=== PATIENT | male | born 1965 | race Caucasian/White ===

== ENCOUNTER 2018-11-23 10:19 | Observation (INO) | payer SELFPAY ==
[2018-11-23 11:12] LABS: #Lymphocytes 0.8 thou/uL (1.20-3.40); #Monocytes 0.7 thou/uL (0.11-0.59); #Neutrophils 6.2 thou/uL (1.40-6.50); %Basophils 0.3 % (0.0-1.0); %Eosinophils 0.3 % (0.0-10.0); %Lymphocytes 10.1 % (21.0-51.0); %Monocytes 8.7 % (0.0-10.0); %Neutrophils 80.5 % (42.0-75.0); Hemoglobin 12.8 g/dL (14.0-18.0); Mean Corpuscular HGB CONC 33.6 g/dL (32.0-36.0); Mean Corpuscular Hemoglobin 29.8 pg (27.0-31.0); Mean Corpuscular Volume 88.8 fL (78.0-98.0); Platelet Count 219 thou/uL (130-400); RBC Distribution Width 11.7 % (11.5-14.5); Red Blood Cell (RBC) Count 4.28 mill/uL (4.70-6.10); White Blood Cell (WBC) Count 7.7 thou/uL (4.8-10.8)
[2018-11-23 11:27] LABS: Acetaminophen Less than 6.0 mcg/mL (10.0-30.0); Alcohol Less than 10 mg/dL (Less than 10); Salicylate Less than 8.0 mg/dL (15.0-30.0)
[2018-11-23 11:28] LABS: ALT (SGPT) 11 U/L (8-55); AST (SGOT) 12 U/L (5-34); Albumin 3.6 g/dL (3.5-5.0); Alcohol Less than 10 mg/dL (Less than 10); Alkaline Phosphatase 82 U/L (40-150); Anion Gap 10 mmol/L (10-20); BUN (Urea Nitrogen) 12 mg/dL (8.4-25.7); CK (CPK) 61 U/L (30-200); Calc. Creatinine Clearance 0 mL/min (70-130); Calcium 8.4 mg/dL (7.8-10.44); Carbon Dioxide 22 mmol/L (22-29); Chloride 108 mmol/L (98-107); Estimated GFR-MDRD Greater than 90; Globulin 2.6 g/dL (2.4-3.5); Glucose 118 mg/dL (70-105); Potassium 3.6 mmol/L (3.5-5.1); Protein, Total 6.2 g/dL (6.0-8.3); Sodium 136 mmol/L (136-145)
[2018-11-23] MEDS ORDERED: Calcium Carbonate 500 MG ChewTAB PO PRN (11:53)
[2018-11-23] MEDS ORDERED: hydrALAZINE 20 MG/ML VIAL SLOW IVP PRN (11:53)
[2018-11-23] MEDS ORDERED: Nitroglycerin 0.4 MG TAB (25 Tab Bottle) SL PRN (11:53)
[2018-11-23] MEDS ORDERED: cloNIDine 0.1 MG TAB PO PRN (11:53)
[2018-11-23] MEDS ORDERED: Ondansetron PF 4 MG/2 ML Vial IVP PRN (11:53)
[2018-11-23] MEDS ORDERED: Sodium Chloride 0.65% Nasal 44 ML BOT EA NARE PRN (11:53)
[2018-11-23] MEDS ORDERED: Bisacodyl 5 MG TAB PO PRN ×2 (11:53)
[2018-11-23] MEDS ORDERED: Acetaminophen 325 MG TAB PO PRN (11:53)
[2018-11-23] MEDS ORDERED: Senokot S 8.6-50 MG TAB PO PRN ×2 (11:53)
[2018-11-23] MEDS ORDERED: HumaLOG 300 UNITS/3 ML VIAL SC PRN ×2 (12:43)
[2018-11-23] MEDS ORDERED: Dextrose 5% in Water 1,000 ML IV PRN (12:43)
[2018-11-23] MEDS ORDERED: Dextrose 50% Abboject 50 ML SYRINGE SLOW IVP PRN (12:43)
--- NOTE | 2018-11-23 12:59 | RAD ---
EXAM: XR Chest 1 View Portable PROVIDED CLINICAL HISTORY: Drug overdose COMPARISON: None FINDINGS: Heart size appears normal. Airspace disease at the left lung base be excluded. Right lung appears chris ar. No evidence for pleural fluid or pneumothorax. IMPRESSION: Question patchy left basilar airspace disease.
--- NOTE | 2018-11-23 13:57 | HP ---
PRIMARY CARE PHYSICIAN: None. CHIEF COMPLAINT: Somnolence and drug overdose. HISTORY OF PRESENTING ILLNESS: Mr. Cloud is a 53-year-old male without any significant past medical history, who presented to the emergency room with above-mentioned complaint. This unclear who brought him here, but he came to the ER via EMS. History is mainly obtained by the record review and discussion with ER physician, Dr. Michel. The patient is very somnolent and unable to provide any history. According to Dr. Michel, the patient has taken accidental overdose of his Thorazine. When I tried to wake up the patient, he did report that he is on a prescription of Thorazine from "[facility]" for difficulty with sleeping. He is normally supposed to take 1 tablet a day, but he forgot to take his medications for the last few days, so he decided to " ." He took 8 tablets of 100 mg Thorazine and then he also took 8 tablets of 25 mg of Benadryl. He took all of these sometime earlier this morning. Denies any alcohol or drug of abuse with it. He reports no medication allergies. He denies any loss of consciousness, fall, or head injury. Upon presentation to the ER via ambulance from [facility]: He was hemodynamically stable with a blood pressure of 106/65, pulse of 71, respirations 16, saturating 98% on room air, and otherwise asymptomatic except for somnolence. According to the ER notes, he has history of diabetes, but he is currently not on any medications for this. His EKG in the ER showed possible left atrial enlargement, normal sinus rhythm, and incomplete right bundle-branch block. Poison Control was contacted by the emergency room physician and they were told to monitor him with EKG and telemonitoring for QRS prolongation. He is now being admitted for observation after Thorazine and Benadryl overdose. According to the Poison Control, the patient is at risk for hypotension, wide QRS, and convulsions. EKG monitoring needs to be done every 6 to 8 hours. PAST MEDICAL HISTORY: Reportedly diabetes mellitus. PAST SURGICAL HISTORY: Right leg surgery. PSYCHIATRIC HISTORY: Anxiety and depression. SOCIAL HISTORY: Smokes cigarettes and denies any alcohol or drug abuse. FAMILY HISTORY: Unable to obtain due to excessive somnolence from the patient. ALLERGIES: NO RECORDED MEDICATION ALLERGIES. HOME MEDICATIONS: Unable to obtain due to somnolence. REVIEW OF SYSTEMS: Unable to complete because of somnolence. LABORATORY AND DIAGNOSTIC STUDIES: Lab examination; CBC shows hemoglobin 12.8, otherwise unremarkable. Neutrophils 80% with WBCs normal. Serum chemistry showed chloride 108, blood sugar 118. Serum salicylate, acetaminophen, and alcohol level are negligible. Chest x-ray was not done. A 12-lead EKG by my review shows normal sinus rhythm with incomplete right bundle-branch block, heart rate 69 beats per minute, normal ST-segment and T-waves. PHYSICAL EXAMINATION: VITAL SIGNS: Stable. Blood pressure 93/69, respirations 16, temperature 97.8, saturating 98% on room air, heart rate 65. GENERAL: No acute distress. He follows simple commands, but he is very somnolent. When woken up, he is coherent and able to tell me his name, date of . He did tell me that he does not have a place to live and is homeless. He appears disheveled and poorly kempt, but in no acute distress. He is oriented to self and place. HEENT: Mucous membrane is slightly dry. No oropharyngeal exudate or erythema. Head is normocephalic, atraumatic. Pupils are equal and reactive to light and accommodation. Extraocular movement intact. NECK: Supple without any lymphadenopathy, JVD, or bruit. CHEST: Clear to auscultation without any wheezing, rales, or rhonchi. Rate/rhythm is regular without any murmurs, rubs, or gallops. ABDOMEN: Soft, nontender, nondistended with positive bowel sounds. EXTREMITIES: Free of any cyanosis, clubbing, or edema. NEUROLOGICAL: Nonfocal. SKIN: Free of any rashes or bruises. Feels warm and dry to touch. PSYCHIATRIC: Normal affect. IMPRESSION AND PLAN: 1. Thorazine and Benadryl overdose. Mr. Cloud will be admitted to telemetry unit. We will obtain EKG every 6 hours. Monitor for hypotension. He will be started on normal saline as his blood pressure has started to run on the lower side. We will obtain a chest x-ray to rule out any aspiration associated with somnolence. He will be admitted under observation status for now. 2. History of diabetes. Start on mild insulin sliding scale and monitor Accu-Cheks a.c. and at bedtime. 3. Start p.r.n. antihypertensives and symptomatic and supportive care. 4. Deep venous thrombosis and gastrointestinal prophylaxis. 5. Walking program. DISPOSITION: Mr. Cloud is currently being admitted to the hospital for drug overdose, namely Thorazine and Benadryl. He is at risk for hypotension and QRS prolongation as well as convulsions. He will be monitored on telemetry closely. He is currently hemodynamically stable. Further management will depend upon his clinical course. Job ID: [id number]
[2018-11-23 16:09] VITALS: BMI 30.7
[2018-11-23] MEDS: Sodium Chloride 0.9% 1,000 ML IV SCH (17:05)
[2018-11-23 17:41] LABS: Amphetamine Not Detected (NotDetected); Barbiturates Screen Not Detected (NotDetected); Benzodiazepine Screen Not Detected (NotDetected); Cocaine Metabolite Screen Not Detected (NotDetected); Medtox Control Line Valid? VALID (VALID); Medtox Reader # READER 1; Methadone Not Detected (NotDetected); Methamphetamine Not Detected (NotDetected); Opiate Screen Not Detected (NotDetected); Oxycodone Screen Not Detected (NotDetected); Phencyclidine (PCP) Not Detected (NotDetected); THC/Cannabinoid Screen Not Detected (NotDetected); Tricyclic Screen Detected (NotDetected)
[2018-11-24] MEDS: Sodium Chloride 0.9% 1,000 ML IV SCH ×2 (03:11→14:57)
[2018-11-24 05:36] LABS: #Eosinphils 0.2 thou/uL (0.0-0.7); #Lymphocytes 1.3 thou/uL (1.20-3.40); #Monocytes 0.5 thou/uL (0.11-0.59); #Neutrophils 3.6 thou/uL (1.40-6.50); %Basophils 0.4 % (0.0-1.0); %Eosinophils 3.4 % (0.0-10.0); %Lymphocytes 22.8 % (21.0-51.0); %Neutrophils 64.3 % (42.0-75.0); Hemoglobin 12.4 g/dL (14.0-18.0); Mean Corpuscular HGB CONC 32.9 g/dL (32.0-36.0); Mean Corpuscular Hemoglobin 29.5 pg (27.0-31.0); Mean Corpuscular Volume 89.6 fL (78.0-98.0); Mean Platelet Volume 7.1 fL (7.4-10.4); Platelet Count 199 thou/uL (130-400); RBC Distribution Width 11.9 % (11.5-14.5); Red Blood Cell (RBC) Count 4.22 mill/uL (4.70-6.10); White Blood Cell (WBC) Count 5.6 thou/uL (4.8-10.8)
[2018-11-24 05:50] LABS: Anion Gap 11 mmol/L (10-20); BUN (Urea Nitrogen) 11 mg/dL (8.4-25.7); Calc. Creatinine Clearance 148 mL/min (70-130); Calcium 8.1 mg/dL (7.8-10.44); Carbon Dioxide 21 mmol/L (22-29); Chloride 109 mmol/L (98-107); Estimated GFR-MDRD Greater than 90; Glucose 192 mg/dL (70-105); Potassium 3.6 mmol/L (3.5-5.1); Sodium 137 mmol/L (136-145)
[2018-11-24] MEDS ORDERED: Enoxaparin Sodium 40 MG/0.4 ML SYRINGE SC SCH (09:00)
[2018-11-24 15:51] VITALS: BP 134/82; TEMP 98.1
--- NOTE | 2018-11-24 22:25 | DIS ---
DATE OF ADMISSION: 11/23/2018 DATE OF DISCHARGE: 11/24/2018 DISCHARGE DIAGNOSES: 1. Thorazine/Benadryl overdose accidental. 2. Acute toxic metabolic encephalopathy secondary to #1, resolved. 3. Insomnia. CONSULTATIONS: None. PERTINENT LAB AND X-RAY FINDINGS: Basic metabolic profile within normal limits. Urine drug screen dated 11/23/2018, positive for tricyclics. Plasma alcohol level less than 10. Portable chest x-ray dated 11/23/2018, showed no acute cardiopulmonary process. HOSPITAL COURSE: The patient was observed on the telemetry unit after initially presenting with accidental overdose of Thorazine and Benadryl. The patient was monitored on the telemetry unit with telemetry showing a sinus mechanism without evidence of acute arrhythmia or dysrhythmia or QT prolongation. The patient was monitored without clinical decompensation and remained clinically stable with stable vital signs throughout the hospital course. The patient tolerated regular oral intake and was alert and oriented x3 prior to discharge. I have examined the patient at the time of discharge and discussed followup instructions. The patient verbalized understanding and agreement ready for discharge on 11/24/2018. DISCHARGE MEDICATIONS: Thorazine 100 mg p.o. at bedtime. FOLLOWUP: The patient will follow up with local [facility] of choice after discharge. DIET: Regular. CODE STATUS: Full. DISPOSITION: Home, 11/24/2018. Job ID: [id number]
--- NOTE | 2018-11-28 09:29 | EKG ---
Test Reason : OVERDOSE-NON SI Blood Pressure : / mmHG Vent. Rate : 069 BPM Atrial Rate : 069 BPM P-R Int : 132 ms QRS Dur : 096 ms QT Int : 440 ms P-R-T Axes : 072 076 035 degrees QTc Int : 471 ms Normal sinus rhythm Possible Left atrial enlargement Incomplete right bundle branch block Borderline ECG Confirmed by BA THURSTON, GIA ([id number]), commercial production editor ALFRED MUHAMMAD ([id number] on 11/28/2018 9:29:16 AM Referred By: MD COSME Confirmed By:GIA COSME MD
== END 2018-11-24 18:38 | disposition home or self-care (01) ==
LOC: EDBD 10:19 → ERS 10:19 → 2SW 15:18
PROVIDERS: ADMIT Internal Medicine; ATTEND Internal Medicine
DX: T43.3X1A Poisoning by phenothiazine antipsychotics and neuroleptics, accidental (unintentional), initial encounter (principal); G92 Toxic encephalopathy; E11.9 Type 2 diabetes mellitus without complications; I45.10 Unspecified right bundle-branch block; F41.9 Anxiety disorder, unspecified; F32.9 Major depressive disorder, single episode, unspecified; F17.210 Nicotine dependence, cigarettes, uncomplicated; G47.00 Insomnia, unspecified; Z79.899 Other long term (current) drug therapy; Z98.890 Other specified postprocedural states
CPT/HCPCS: 36415; 36416; 71045; 80048; 80053; 80306; 80307; 82550; 85025; 90471; 90732; 93005; 93010; 96360; 96361; G0009; G0378; J0360; J1650